=== PATIENT | male | born 1940 | race Caucasian/White ===

== ENCOUNTER → 2019-05-04 | Outpatient (CLI) | payer OTHER ==
[~2019-05-04] MED LIST: ASPIRIN325 PO; CARDIZEM CD360 MG PO; CRESTOR20 MG PO; HYDROCODON-ACE1 EAC7 PO; LOPRESSOR25 PO; Pradaxa PO
== END ==
LOC: SJCVC 14:05
DX: R94.31 Abnormal electrocardiogram [ECG] [EKG] (principal); I48.21 Permanent atrial fibrillation; I25.810 Atherosclerosis of coronary artery bypass graft(s) without angina pectoris; I10 Essential (primary) hypertension; D68.59 Other primary thrombophilia; E78.00 Pure hypercholesterolemia, unspecified; I48.20 Chronic atrial fibrillation, unspecified; Z79.82 Long term (current) use of aspirin; Z79.899 Other long term (current) drug therapy; Z88.8 Allergy status to other drugs, medicaments and biological substances

== ENCOUNTER → 2020-06-20 | Outpatient (CLI) | payer OTHER | LOC: SJCVC 11:58 | PROVIDERS: ATTEND Internal Medicine Cardiovascular Disease | DX: R94.31 Abnormal electrocardiogram [ECG] [EKG] (principal); I48.21 Permanent atrial fibrillation; I25.810 Atherosclerosis of coronary artery bypass graft(s) without angina pectoris; I10 Essential (primary) hypertension; E78.00 Pure hypercholesterolemia, unspecified; D68.59 Other primary thrombophilia; Z78.9 Other specified health status ==

== ENCOUNTER → 2020-10-29 | Outpatient (CLI) | payer OTHER | LOC: SJCVCIMAG 07:41 | PROVIDERS: ATTEND Internal Medicine Cardiovascular Disease | DX: I08.1 Rheumatic disorders of both mitral and tricuspid valves (principal); I49.3 Ventricular premature depolarization; I11.9 Hypertensive heart disease without heart failure; I48.91 Unspecified atrial fibrillation; I25.10 Atherosclerotic heart disease of native coronary artery without angina pectoris; Z79.82 Long term (current) use of aspirin; Z79.899 Other long term (current) drug therapy ==